=== PATIENT | male | born 1980 | race Caucasian/White ===

== ENCOUNTER 2020-11-08 14:30 | Outpatient (RCR) | payer OTHER, SELFPAY ==
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
--- NOTE | 2020-06-24 14:46 | ST.OPPOC ---
Physical, Occupational & Speech Therapy At [facility] Visit Care Team Role Provider Type Catalino Nice Attending Provider Non-Staff Primary Care Provider Referring Provider Address: [address] [place] [address], [address] Speech Pathology Plan of Care Plan of Care Dates 06/19/20-12/19/20 Short Term Goals Complete assessment of Haylee's current cognitive status using a standardized cognitive assessment tool. Electronically Signed by: NELSON Young 06/24/20 7227 Please Sign and Return: I have reviewed this Plan of Care and certify that the skilled therapy services above are required to meet the patient?s needs. Physician Signature Date Printed Name and Credentials Clinical Instructor Signature Printed Name and Credentials
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
== END 2021-01-07 10:48 ==
LOC: SP 14:30
PROVIDERS: PCP Student in an Organized Health Care Education/Training Program; Referring Provider Student in an Organized Health Care Education/Training Program; Visit Provider Student in an Organized Health Care Education/Training Program
DX: R41.3 Other amnesia (principal)
CPT/HCPCS: 92507; 92523; 97129; 97130